=== PATIENT | female | born 1955 | race Caucasian/White ===

== ENCOUNTER → 2017-03-24 | Outpatient (CLI) | payer BC ==
--- NOTE | 2017-03-24 15:51 | BD ---
EXAMINATION TYPE: MG DEXA axial skeleton. DATE OF EXAM: 03/24/2017 8:51 AM COMPARISON: 01.07.2015 CLINICAL HISTORY: Z78.0 SCREENING FOR OSTEOPOROSIS Height: 60 Weight: 213 FRAX RISK QUESTIONS: Alcohol (3 or more units per day): NO Family History (Parent hip fracture): NO Glucocorticoids (More than 3mos): YES (Ex: prednisone, prednisolone, methylprednisolone, dexamethasone, and hydrocortisone). History of Fracture in Adulthood: NO Secondary Osteoporosis: NO 1. Type 1 Diabetes: NO 2. Hyperthyroidism: NO 3. Menopause before 45: NO 4. Malnutrition: NO 5. 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 Bone mineral density as measured about the Lumbar spine is: ----- L1-L4(G/cm2): 1.377 T Score Values are as follows: ----- L1 0.6 ----- L2: 1.5 ----- L3: 2.2 ----- L4: 2.0 ----- L1-L4: 1.6 Bone mineral density has: Increased 3.9% since study of: 01.07.2015 Bone mineral density about the R hip (g/cm2): 1.122 Bone mineral density about the L hip (g/cm2): 1.156 T Score values are as follows: -----R Neck: -0.5 -----L Neck: -0.7 -----R Total: 0.9 -----L Total: 1.2 Bone mineral density has: Decreased -1.0% since study of: 01.07.2015 FRAX %'S: 6.1% CHANCE OF MAJOR OSTEOPOROTIC FX AND A 0.2% CHANCE OF A HIP FX....PROBABILITY IN 10 YRS TIME IMPRESSION: Normal (Values between +1 and -1 indicate normal bone mass). Consider repeating this study in 5 year s or sooner if there is some new clinical indication. 2. Bone density within the lumbar spine has improved 3.9% from 2015 and density within the hips has d iminished 1% from 2015 NOTE: T-SCORE=SD OF THE YOUNG ADULT MEAN.
--- NOTE | 2017-03-27 09:22 | MM ---
Reason for exam: screening (asymptomatic). Last mammogram was performed 1 year and 2 months ago. History: Patient is postmenopausal and has history of other cancer at age 55. Family history of breast cancer in sister at age 57 and breast cancer in aunt at age 60. Physical Findings: A clinical breast exam by your physician is recommended on an annual basis and results should be correlated with mammographic findings. MG Screening Mammo w CAD Bilateral CC and MLO view(s) were taken. Prior study comparison: January 22, 2016, bilateral MG screening mammo w CAD. December 05, 2014, bilateral MG screening mammo w CAD. There are scattered fibroglandular densities. There is no discrete abnormality. No significant changes when compared with prior studies. ASSESSMENT: Negative, BI-RAD 1 RECOMMENDATION: Routine screening mammogram of both breasts in 1 year.
== END | disposition home or self-care (01) ==
LOC: RADMAMWWP 08:06
PROVIDERS: ATTEND Obstetrics & Gynecology
DX: Z12.31 Encounter for screening mammogram for malignant neoplasm of breast (principal); Z78.0 Asymptomatic menopausal state
CPT/HCPCS: 77080; G0202

== ENCOUNTER → 2018-04-20 | Outpatient (CLI) | payer BC ==
--- NOTE | 2018-04-24 08:46 | MM ---
Reason for exam: screening (asymptomatic). Last mammogram was performed 1 year and 1 month ago. History: Patient is postmenopausal and has history of other cancer at age 55. Family history of breast cancer in sister at age 57 and breast cancer in aunt at age 60. Physical Findings: A clinical breast exam by your physician is recommended on an annual basis and results should be correlated with mammographic findings. MG 3D Screening Mammo W/Cad Bilateral CC and MLO view(s) were taken. Prior study comparison: March 24, 2017, bilateral MG screening mammo w CAD. January 22, 2016, bilateral MG screening mammo w CAD. There are scattered fibroglandular densities. No significant changes when compared with prior studies. ASSESSMENT: Negative, BI-RAD 1 RECOMMENDATION: Routine screening mammogram of both breasts in 1 year.
== END | disposition home or self-care (01) ==
LOC: RADMAMWWP 07:42
PROVIDERS: ATTEND Obstetrics & Gynecology
DX: Z12.31 Encounter for screening mammogram for malignant neoplasm of breast (principal)
CPT/HCPCS: 77063; 77067

== ENCOUNTER 2019-07-30 08:04 | Observation (INO) | payer BC ==
[2019-07-30] MEDS ORDERED: SODIUM CHLORIDE 0.9% 1,000 ML IV STA (08:29)
[2019-07-30] MEDS ORDERED: NITROGLYCERIN SL TABS 0.4 MG TAB SUBLINGUAL STA (08:29)
--- NOTE | 2019-07-30 08:33 | ED ---
Nausea/Vomiting/Diarrhea HPI - General Chief complaint: Nausea/Vomiting/Diarrhea Stated complaint: chest pain Time Seen by Provider: 07/30/19 08:29 Source: patient, RN notes reviewed Mode of arrival: wheelchair Limitations: no limitations - History of Present Illness Initial comments: This is a 63-year-old female with a history of LAP-BAND in the past also history of cardiac catheterization over 10 years ago who presents with complaints the onset last evening of retrosternal chest pain rating to her left arm into her left back she states was 8/10 severity was associated with sweats and nausea she states she took 2 full strength aspirin about an hour later the symptoms for the most part resolved this morning she complains of continued less severe pain achy in nature 3/10 severity so some slight nausea. No fevers chills sweats no cough no phlegm production she states she has had a LAP-BAND in the past but there is no saline in it. She has a family history of heart disease her dad had manifestations of heart disease at the age of 62. No other modifying factors at this time MD complaint: nausea, other - Related Data Home Medications Medication Instructions Recorded Confirmed Ascorbic Acid [Vitamin C] 500 mg PO DAILY 07/30/19 07/30/19 Aspirin EC [Ecotrin] 650 mg PO ONCE PRN 07/30/19 07/30/19 Cyanocobalamin (Vitamin B-12) 1,000 mcg PO DAILY 07/30/19 07/30/19 [Vitamin B-12] Irbesartan 300 mg PO DAILY 07/30/19 07/30/19 Multivitamins, Thera [Multivitamin 1 tab PO DAILY 07/30/19 07/30/19 (formulary)] [place]-3 Fatty Acids/Fish Oil [Fish 1 cap PO DAILY 07/30/19 07/30/19 Oil 1,000 mg Softgel] Allergies Allergy/AdvReac Type Severity Reaction Status Date / Time No Known Allergies Allergy Verified 07/30/19 08:39 Review of Systems ROS Statement: Those systems with pertinent positive or pertinent negative responses have been documented in the HPI. ROS Other: All systems not noted in ROS Statement are negative. Past Medical History Past Medical History: Hypertension History of Any Multi-Drug Resistant Organisms: None Reported Past Surgical History: Section Additional Past Surgical History / Comment(s): lap band, skin cancer removal Past Psychological History: No Psychological Hx Reported Smoking Status: Never smoker Past Alcohol Use History: None Reported Past Drug Use History: None Reported General Exam - General Exam Comments Initial Comments: This is a well-developed well-nourished awake alert oriented 3 female Limitations: no limitations General appearance: alert, in no apparent distress Head exam: Present: atraumatic, normocephalic, normal inspection Eye exam: Present: normal appearance, PERRL, EOMI. Absent: scleral icterus, conjunctival injection, periorbital swelling ENT exam: Present: normal exam, mucous membranes moist Neck exam: Present: normal inspection, full ROM, other (No stridor or bruits no JVD). Absent: tenderness, meningismus, lymphadenopathy Respiratory exam: Present: normal lung sounds bilaterally. Absent: respiratory distress, wheezes, rales, rhonchi, stridor Cardiovascular Exam: Present: regular rate, normal rhythm, normal heart sounds. Absent: systolic murmur, diastolic murmur, rubs, gallop, clicks GI/Abdominal exam: Present: soft, normal bowel sounds. Absent: distended, tenderness, guarding, rebound, rigid, bruit, pulsatile mass Extremities exam: Present: normal inspection, full ROM, normal capillary refill. Absent: tenderness, pedal edema, joint swelling, calf tenderness Back exam: Present: normal inspection Neurological exam: Present: alert, oriented X3, CN II-XII intact Psychiatric exam: Present: normal affect, normal mood Skin exam: Present: warm, dry, intact, normal color. Absent: rash Course Vital Signs 07/30/19 07/30/19 07/30/19 08:07 08:43 09:00 Temperature 97.9 F Pulse Rate 72 72 Pulse Rate [ 75 [employer] Marker ] Respiratory 18 25 H 12 Rate Blood Pressure 161/87 140/102 O2 Sat by Pulse 97 95 Oximetry 07/30/19 10:00 Temperature Pulse Rate 73 Pulse Rate [ [employer] Marker ] Respiratory 12 Rate Blood Pressure 122/86 O2 Sat by Pulse 95 Oximetry - Reevaluation(s) Reevaluation #1: 07/30/19 11:26 Patient is feeling improved and did not require any nitroglycerin. Medical Decision Making - Medical Decision Making Reevaluation patient finds that she is resting comfortably symptoms have resolved the presentation however is consistent with angina. Discussion with the patient she is agreed to stay in hospital. She will be admitted with consultation to cardiology. The case is discussed with Dr. Telles - Lab Data Result diagrams: 07/30/19 08:48 07/30/19 08:48 Lab Results 07/30/19 07/30/19 07/30/19 Range/Units 08:48 08:48 08:48 WBC 4.4 (3.8-10.6) k/uL RBC 5.30 (3.80-5.40) m/uL Hgb 15.5 (11.4-16.0) gm/dL Hct 46.3 H (34.0-46.0) % MCV 87.4 (80.0-100.0) fL MCH 29.3 (25.0-35.0) pg MCHC 33.6 (31.0-37.0) g/dL RDW 13.3 (11.5-15.5) % Plt Count 207 (150-450) k/uL Neutrophils % 68 % Lymphocytes % 17 % Monocytes % 8 % Eosinophils % 3 % Basophils % 2 % Neutrophils # 3.0 (1.3-7.7) k/uL Lymphocytes # 0.7 L (1.0-4.8) k/uL Monocytes # 0.3 (0-1.0) k/uL Eosinophils # 0.1 (0-0.7) k/uL Basophils # 0.1 (0-0.2) k/uL PT 10.1 (9.0-12.0) sec INR 0.9 (<1.2) APTT 24.8 (22.0-30.0) sec D-Dimer 0.29 (<0.60) mg/L FEU Sodium 141 (137-145) mmol/L Potassium 4.2 (3.5-5.1) mmol/L Chloride 106 (98-107) mmol/L Carbon Dioxide 27 (22-30) mmol/L Anion Gap 8 mmol/L BUN 20 H (7-17) mg/dL Creatinine 0.67 (0.52-1.04) mg/dL Est GFR (CKD-EPI)AfAm >90 (>60 ml/min/1.73 sqM) Est GFR (CKD-EPI)NonAf >90 (>60 ml/min/1.73 sqM) Glucose 102 H (74-99) mg/dL Calcium 10.1 (8.4-10.2) mg/dL Magnesium 2.3 (1.6-2.3) mg/dL Total Bilirubin 0.6 (0.2-1.3) mg/dL AST 32 (14-36) U/L ALT 28 (9-52) U/L Alkaline Phosphatase 69 (38-126) U/L Creatine Kinase 120 (30-135) U/L Troponin I (0.000-0.034) ng/mL NT-Pro-B Natriuret Pep pg/mL Total Protein 7.2 (6.3-8.2) g/dL Albumin 4.4 (3.5-5.0) g/dL Lipase 77 (23-300) U/L 07/30/19 07/30/19 Range/Units 08:48 08:48 WBC (3.8-10.6) k/uL RBC (3.80-5.40) m/uL Hgb (11.4-16.0) gm/dL Hct (34.0-46.0) % MCV (80.0-100.0) fL MCH (25.0-35.0) pg MCHC (31.0-37.0) g/dL RDW (11.5-15.5) % Plt Count (150-450) k/uL Neutrophils % % Lymphocytes % % Monocytes % % Eosinophils % % Basophils % % Neutrophils # (1.3-7.7) k/uL Lymphocytes # (1.0-4.8) k/uL Monocytes # (0-1.0) k/uL Eosinophils # (0-0.7) k/uL Basophils # (0-0.2) k/uL PT (9.0-12.0) sec INR (<1.2) APTT (22.0-30.0) sec D-Dimer (<0.60) mg/L FEU Sodium (137-145) mmol/L Potassium (3.5-5.1) mmol/L Chloride (98-107) mmol/L Carbon Dioxide (22-30) mmol/L Anion Gap mmol/L BUN (7-17) mg/dL Creatinine (0.52-1.04) mg/dL Est GFR (CKD-EPI)AfAm (>60 ml/min/1.73 sqM) Est GFR (CKD-EPI)NonAf (>60 ml/min/1.73 sqM) Glucose (74-99) mg/dL Calcium (8.4-10.2) mg/dL Magnesium (1.6-2.3) mg/dL Total Bilirubin (0.2-1.3) mg/dL AST (14-36) U/L ALT (9-52) U/L Alkaline Phosphatase (38-126) U/L Creatine Kinase (30-135) U/L Troponin I <0.012 (0.000-0.034) ng/mL NT-Pro-B Natriuret Pep 90 pg/mL Total Protein (6.3-8.2) g/dL Albumin (3.5-5.0) g/dL Lipase (23-300) U/L - EKG Data -: EKG Interpreted by Me EKG shows normal: sinus rhythm, axis, intervals, QRS complexes, ST-T waves (Normal sinus rhythm of 75. Interval 174 QRS 84 QT since QTC 382/[address]-T wave changes are seen) Rate: normal - Radiology Data Radiology results: report reviewed (I did review the imaging and report no acute findings.), image reviewed Disposition Clinical Impression: Unstable angina pectoris, Chest pain Disposition: ADMITTED IP TO THIS [facility] Condition: Stable Referrals: Jesse Flores MD [Primary Care Provider] - 1-2 days
[2019-07-30 09:10] LABS: Basophils # (A) 0.1 k/uL (0-0.2); Basophils % (A) 2 %; Eosinophils # (A) 0.1 k/uL (0-0.7); Eosinophils % (A) 3 %; HCT 46.3 % (34.0-46.0); HGB 15.5 gm/dL (11.4-16.0); Lymphocytes # (A) 0.7 k/uL (1.0-4.8); Lymphocytes % (A) 17 %; MCH 29.3 pg (25.0-35.0); MCHC 33.6 g/dL (31.0-37.0); MCV 87.4 fL (80.0-100.0); Mean Platelet Volume 6.6; Monocytes # (A) 0.3 k/uL (0-1.0); Monocytes % (A) 8 %; Neutrophils % (A) 68 %; Platelet Count 207 k/uL (150-450); RDW 13.3 % (11.5-15.5); WBC 4.4 k/uL (3.8-10.6)
--- NOTE | 2019-07-30 09:17 | XR ---
EXAMINATION TYPE: XR chest 2V DATE OF EXAM: 07/30/2019 COMPARISON: None HISTORY: 63-year-old female with chest pain TECHNIQUE: PA and lateral views FINDINGS: Heart normal size. Mild elongation thoracic aorta. Mild interstitial prominence. Some strandy atelect asis in the lower lungs. No consolidation or pleural effusion. IMPRESSION: Chronic-appearing changes without acute cardiopulmonary process.
[2019-07-30 09:33] LABS: D-Dimer 0.29 mg/L FEU (<0.60); INR 0.9 (<1.2); Partial Thromboplastin Time 24.8 sec (22.0-30.0); Prothrombin Time 10.1 sec (9.0-12.0)
[2019-07-30 09:36] LABS: ALT 28 U/L (9-52); AST 32 U/L (14-36); African American GFR (CKD) >90 (>60 ml/min/1.73 sqM); Albumin 4.4 g/dL (3.5-5.0); Alkaline Phosphatase 69 U/L (38-126); Anion Gap 8 mmol/L; Blood Urea Nitrogen 20 mg/dL (7-17); Calcium 10.1 mg/dL (8.4-10.2); Carbon Dioxide 27 mmol/L (22-30); Chloride 106 mmol/L (98-107); Creatine Kinase 120 U/L (30-135); Glucose 102 mg/dL (74-99); Magnesium 2.3 mg/dL (1.6-2.3); Potassium 4.2 mmol/L (3.5-5.1); Sodium 141 mmol/L (137-145); Total Bilirubin 0.6 mg/dL (0.2-1.3); Total Protein 7.2 g/dL (6.3-8.2)
[2019-07-30] MEDS ORDERED: HEPARIN SODIUM,PORCINE 5,000 UNIT/ML 1 ML VIAL IV ONE (11:29)
[2019-07-30] MEDS ORDERED: NITROGLYCERIN SL TABS 0.4 MG TAB SUBLINGUAL PRN (11:29)
[2019-07-30] MEDS ORDERED: SODIUM CHLORIDE 0.9% 1,000 ML IV SCH (11:30)
[2019-07-30] MEDS ORDERED: HEPARIN SOD,PORK IN 0.45% NACL 25,000 UNIT in 0.45% NACL 1 250ML.BAG IV SCH (11:30)
--- NOTE | 2019-07-30 13:39 | P.CRDCN ---
History of Present Illness History of present illness: This is a pleasant 63-year-old female past medical history significant for hypertension and previous lap band surgery. She denies prior history of coronary artery disease, diabetes mellitus or dyslipidemia. She does not follow with a safety person for any reason. She did undergo a heart catheterization 10 years that was normal, per the patient. We have been asked to see her in c onsultation for chest pain. She states last night while she was getting ready for bed she noticed a discomfort in the left upper chest with some radiation to the left anterior shoulder. She took aspirin and went to sleep. She woke up chest pain free however she noticed some mild nausea, light headed and overall didn't feel well. Prompting her to come in for evaluation. She is seen and examined sitting on the stretcher in ER with her at the bedside. She denies ongoing chest discomfort, nausea or feeling light headed. EKG reveals sinus mechanism with no acute ST or T-wave abnormalities. Chest x-ray is negative for acute cardiopulmonary process with mild interstitial prominence. Laboratory data reviewed, CBC unremarkable, d-dimer 0.29, sodium 141, potassium 4.2, creatinine 0.67, magnesium 2.3, cardiac enzymes negative 1, proBNP 90. Current daily cardiac medications include irbesartan 300 mg daily. At the time of my exam: CONSTITUTIONAL: Denies fever. Denies chills. EYES: Denies blurred vision. Denies vision changes. Denies eye pain. EARS, NOSE, MOUTH & THROAT: Denies headache. Denies sore throat. Denies ear pain. CARDIOVASCULAR: Denies chest pain. Denies shortness of breath. Denies orthopnea. Denies PND. Denies palpitations. RESPIRATORY: Denies cough. GASTROINTESTINAL: Denies abdominal pain. Denies diarrhea. Denies constipation. Denies nausea. Denies vomiting. MUSCULOSKELETAL: Denies myalgias. INTEGUMENTARY: Denies pruitis. Denies rash. NEUROLOGIC: Denies numbness. Denies tingling. Denies weakness. PSYCHIATRIC: Denies anxiety. Denies depression. ENDOCRINE: Denies fatigue. Denies weight change. Denies polydipsia. Denies polyurina. GENITOURINARY: Denies burning, hematuria or urgency with micturation. HEMATOLOGIC: Denies history of anemia. Denies bleeding. Blood pressure 122/86 heart rate 73 afebrile maintaining oxygen saturation on room air GENERAL: This is a 63-year-old female in no apparent distress at the time of my examination. Obese. HEENT: Head is atraumatic, normocephalic. Pupils are equal, round. Sclerae anicteric. Conjunctivae are clear. Mucous membranes of the mouth are moist. Neck is supple. There is no jugular venous distention. No carotid bruit is heard. LUNGS: Clear to auscultation no wheezes, rales or rhonchi. No chest wall tenderness is noted on palpation or with deep breathing. HEART: Regular rate and rhythm without murmurs, rubs or gallops. S1 and S2 heard. ABDOMEN: Soft, nontender. Bowel sounds are heard. No organomegaly noted. EXTREMITIES: No evidence of peripheral edema and no calf tenderness noted. VASCULAR: Radial and dorsalis pedis pulses palpated, no evidence of clubbing. NEUROLOGIC: Patient is awake, alert and oriented x3. ASSESSMENT Chest pain, atypical. Patient is quite active and exercises regularly with no chest pain with exertion. Hypertension Morbid obesity, BMI 43 History of lap band PLAN Symptoms are atypical occurring at rest. Less likely considering she exercises regularly without ever having symptoms of chest pain or shortness of breath. Continue to obtain serial cardiac enzymes to rule out an acute event. Check lipid profile. Obtain 2D echocardiogram and doppler study to assess cardiac structure and function. If enzymes are normal we will pursue a stress test in the morning. Plans have been discussed with the patient and her . Thank you kindly for this consultation. Nurse Practitioner note has been reviewed, I agree with a documented findings and plan of care. Patient was seen and examined. Past Medical History Past Medical History: Hypertension History of Any Multi-Drug Resistant Organisms: None Reported Past Surgical History: Section Additional Past Surgical History / Comment(s): lap band, skin cancer removal Past Psychological History: No Psychological Hx Reported Smoking Status: Never smoker Past Alcohol Use History: None Reported Past Drug Use History: None Reported Medications and Allergies Home Medications Medication Instructions Recorded Confirmed Type Ascorbic Acid [Vitamin C] 500 mg PO DAILY 07/30/19 07/30/19 History Aspirin EC [Ecotrin] 650 mg PO ONCE PRN 07/30/19 07/30/19 History Cyanocobalamin (Vitamin B-12) 1,000 mcg PO DAILY 07/30/19 07/30/19 History [Vitamin B-12] Irbesartan 300 mg PO DAILY 07/30/19 07/30/19 History Multivitamins, Thera [Multivitamin 1 tab PO DAILY 07/30/19 07/30/19 History (formulary)] [place]-3 Fatty Acids/Fish Oil [Fish 1 cap PO DAILY 07/30/19 07/30/19 History Oil 1,000 mg Softgel] Allergies Allergy/AdvReac Type Severity Reaction Status Date / Time No Known Allergies Allergy Verified 07/30/19 08:39 Physical Exam Vitals: Vital Signs Temp Pulse Pulse Resp BP Pulse Ox 07/30/19 10:00 73 12 122/86 95 07/30/19 09:00 72 12 140/102 95 07/30/19 08:43 75 25 H 07/30/19 08:07 97.9 F 72 18 161/87 97 Intake and Output 07/29/19 07/30/19 07/30/19 22:59 06:59 14:59 Other: Weight 99.79 kg Results 07/30/19 08:48 07/30/19 08:48 Cardiac Enzymes 07/30/19 07/30/19 Range/Units 08:48 08:48 AST 32 (14-36) U/L Troponin I <0.012 (0.000-0.034) ng/mL Coagulation 07/30/19 Range/Units 08:48 PT 10.1 (9.0-12.0) sec APTT 24.8 (22.0-30.0) sec CBC 07/30/19 Range/Units 08:48 WBC 4.4 (3.8-10.6) k/uL RBC 5.30 (3.80-5.40) m/uL Hgb 15.5 (11.4-16.0) gm/dL Hct 46.3 H (34.0-46.0) % Plt Count 207 (150-450) k/uL Comprehensive Metabolic Panel 07/30/19 Range/Units 08:48 Sodium 141 (137-145) mmol/L Potassium 4.2 (3.5-5.1) mmol/L Chloride 106 (98-107) mmol/L Carbon Dioxide 27 (22-30) mmol/L BUN 20 H (7-17) mg/dL Creatinine 0.67 (0.52-1.04) mg/dL Glucose 102 H (74-99) mg/dL Calcium 10.1 (8.4-10.2) mg/dL AST 32 (14-36) U/L ALT 28 (9-52) U/L Alkaline Phosphatase 69 (38-126) U/L Total Protein 7.2 (6.3-8.2) g/dL Albumin 4.4 (3.5-5.0) g/dL Current Medications Generic Name Dose Route Start Last Admin Trade Name Hannah PRN Reason Stop Dose Admin Ascorbic Acid 500 mg 07/31/19 09:00 Vitamin C PO DAILY DESMOND Aspirin 81 mg 07/31/19 09:00 Aspirin PO DAILY DESMOND Cyanocobalamin 1,000 mcg 07/31/19 09:00 Vitamin B-12 PO DAILY DESMOND Sodium Chloride 1,000 mls @ 20 mls/hr 07/30/19 08:29 07/30/19 08:58 Saline 0.9% IV 07/31/19 08:28 Not Given .Q24H STA Sodium Chloride 1,000 mls @ 20 mls/hr 07/30/19 11:30 07/30/19 11:59 Saline 0.9% IV 20 mls/hr .Q24H DESMOND Administration Heparin Sodium/Sodium Chloride 250 mls @ 10 mls/hr 07/30/19 11:30 07/30/19 11:59 25,000 unit/ Sodium Chloride IV 10.021 units/kg/hr .Q24H DESMOND 10 mls/hr Administration Protocol 10.021 UNITS/KG/HR Losartan Potassium 100 mg 07/31/19 09:00 Cozaar PO DAILY [facility] Multivitamins 1 each 07/31/19 09:00 Theragran PO DAILY [facility] Nitroglycerin 0.4 mg 07/30/19 11:29 Nitrostat SUBLINGUAL Q5M PRN Chest Pain Intake and Output 07/29/19 07/30/19 07/30/19 22:59 06:59 14:59 Other: Weight 99.79 kg Patient Weight 07/31/19 06:59 Weight 99.79 kg 07/30/19 08:48 07/30/19 08:48
[2019-07-30 18:23] VITALS: RESP 18
--- NOTE | 2019-07-30 21:50 | P.HPIM ---
History of Present Illness H&P Date: 07/30/19 Chief Complaint: Chest pain History of presenting complaint This is a pleasant 63-year-old patient of Dr. Jesse Flores. Last night patient developed pain in the precordial area. Feels like a pressure. The patient did go down to the back and also went down the left arm. It lasted for about an hour. Has been given 2 baby aspirin is. The patient went back to sleep. There was no associated shortness of breath, dizziness or lightheadedness. This morning with the patient woke up she was nauseated. Given her family history of coronary artery disease and her daughter also from arrhythmia. She decided to come in. Admitted with diagnosis of unstable angina for further cardiac workup. Cardiac she was consulted. Patient otherwise active and does regular workout and his physical training. No prior cardiac history Review of systems: GEN.: None EYES: None HEENT: None NECK: None RESPIRATORY: None CARDIOVASCULAR: As above GASTROINTESTINAL: None GENITOURINARY: None MUSCULOSKELETAL: Chronic low back pain LYMPHATICS: None HEMATOLOGICAL: None PSYCHIATRY: None NEUROLOGICAL: None Social history: Does not smoke. No alcohol. . 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 Family history: Coronary artery disease Physical examination: VITAL SIGNS: 97.9, 65, 18, 144/98, 97% room air GENERAL: BMI 43, laying in bed a bit anxious. EYES: Pupils equal. Conjunctiva normal. HEENT: External appearance of nose and ears normal, oral cavity grossly normal. NECK: JVD not raised; masses not palpable. HEART: First and second heart sounds are normal; no edema. LUNGS: Respiratory rate normal; clear to auscultation. ABDOMEN: Soft, nontender, liver spleen not palpable, no masses palpable. PSYCH: Alert and oriented x3; mood and affect normal. NEUROLOGICAL: Cranial nerves grossly intact; no facial asymmetry, power and sensation grossly intact. LYMPHATICS: No lymph nodes palpable in the axilla and neck MUSCULOSKELETAL: Evidence of OA in the hands INVESTIGATIONS, reviewed in the clinical context: White count 4.4 hemoglobin 15.5 platelets 207 potassium 4.2 creatinine 0.67 Troponin I 3 negative EKG tracing personally reviewed by me shows normal sinus rhythm Chest x-ray film personally reviewed by me shows lung gardner to be clear questionable some chronic changes of the right side Assessment: -Anterior chest wall pain with some atypical features, to rule out underlying cardiac cause. [place] has been ruled out -Primary osteoarthritis -Essential hypertension -Morbid obesity BMI 43 Plan: Serial cardiac enzymes are negative patient is on IV heparin. Home medications resumed. Patient undergo stress test tomorrow. Care was discussed with the eliecer mike. Patient to see a dietitian and family doctor for weight loss measures Past Medical History Past Medical History: Cancer, Hypertension, Respiratory Disorder Additional Past Medical History / Comment(s): arthritis in lower back, broncitis History of Any Multi-Drug Resistant Organisms: None Reported Past Surgical History: Section Additional Past Surgical History / Comment(s): lap band, skin cancer removal Past Anesthesia/Blood Transfusion Reactions: No Reported Reaction Past Psychological History: No Psychological Hx Reported Smoking Status: Never smoker Past Alcohol Use History: None Reported Past Drug Use History: None Reported - Past Family History Father Additional Family Medical History / Comment(s): cabg x 4 Daughter(s) Additional Family Medical History / Comment(s): cardiac arrythmia Medications and Allergies Home Medications Medication Instructions Recorded Confirmed Type Ascorbic Acid [Vitamin C] 500 mg PO DAILY 07/30/19 07/30/19 History Aspirin EC [Ecotrin] 650 mg PO ONCE PRN 07/30/19 07/30/19 History Cyanocobalamin (Vitamin B-12) 1,000 mcg PO DAILY 07/30/19 07/30/19 History [Vitamin B-12] Irbesartan 300 mg PO DAILY 07/30/19 07/30/19 History Multivitamins, Thera [Multivitamin 1 tab PO DAILY 07/30/19 07/30/19 History (formulary)] [place]-3 Fatty Acids/Fish Oil [Fish 1 cap PO DAILY 07/30/19 07/30/19 History Oil 1,000 mg Softgel] Allergies Allergy/AdvReac Type Severity Reaction Status Date / Time No Known Allergies Allergy Verified 07/30/19 08:39 Physical Exam Vitals: Vital Signs Temp Pulse Pulse Resp BP BP Pulse Ox 07/30/19 18:22 97.9 F 65 18 144/98 97 07/30/19 16:00 67 16 159/83 07/30/19 14:00 66 16 152/89 07/30/19 10:00 73 12 122/86 95 07/30/19 09:00 72 12 140/102 95 07/30/19 08:43 75 25 H 07/30/19 08:07 97.9 F 72 18 161/87 97 Intake and Output 07/30/19 07/30/19 07/30/19 06:59 14:59 22:59 Other: Voiding Method Toilet Weight 99.79 kg Results CBC & Chem 7: 07/30/19 08:48 07/30/19 08:48 Labs: Abnormal Lab Results - Last 24 Hours (Table) 07/30/19 07/30/19 07/30/19 Range/Units 08:48 08:48 19:14 Hct 46.3 H (34.0-46.0) % Lymphocytes # 0.7 L (1.0-4.8) k/uL APTT 39.0 H (22.0-30.0) sec BUN 20 H (7-17) mg/dL Glucose 102 H (74-99) mg/dL Thrombosis Risk Factor Assmnt - Choose All That Apply Any of the Below Risk Factors Present?: Yes Each Factor Represents 1 point: Obesity (BMI >25) Other Risk Factors: Yes Each Risk Factor Represents 2 Points: Age 61-74 years Other congenital or acquired thrombophilia - If yes, enter type in comment: No Thrombosis Risk Factor Assessment Total Risk Factor Score: 3 Thrombosis Risk Factor Assessment Level: Moderate Risk
[2019-07-30 23:26] LABS: Cholesterol 220 mg/dL (<200); HDL Cholesterol 49 mg/dL (40-60); LDL Cholesterol,Calculated 146 mg/dL (0-99); Triglycerides 125 mg/dL (<150)
--- NOTE | 2019-07-31 07:29 | PN ---
PROGRESS NOTE Mrs. George is a 63-year-old female who presented to the emergency room with symptoms of chest discomfort. The discomfort occurred at rest. She is pain-free this morning. She is denying any chest discomfort. She denies any dizziness or palpitation. She denies any nausea. She continues to be in sinus mechanism. She continues to be at this time on IV heparin, aspirin, losartan 100 mg daily. PHYSICAL EXAMINATION: Blood pressure 105/70 with the heart rate in the 60s. LUNGS: Clear. HEART: Regular rate and rhythm. S1, S2. No S3. No rub. ABDOMEN: Soft, nontender. Positive bowel sounds. EXTREMITIES: No edema. LAB DATA: Lab data revealed troponin less than 0.012. Cholesterol of 220, LDL of 146. IMPRESSION: 1. Chest discomfort with no evidence of myocardial infarction. 2. History of hypertension. 3. Hyperlipidemia. RECOMMENDATION: From the cardiac standpoint, I will stop the IV heparin. I will proceed with a stress echocardiogram. If there is no evidence of inducible ischemia, then no further cardiac workup will be needed. MMODL / IJN: [id number] /
[2019-07-31] MEDS ORDERED: NON FORMULARY DRUG (Omega-3 Fatty Acids/Fish Oil [Fish Oil 1,000 Mg Softgel] 1 CAP) PO SCH (09:00)
[2019-07-31] MEDS ORDERED: ASCORBIC ACID 500 MG TAB PO SCH (09:00)
[2019-07-31] MEDS ORDERED: CYANOCOBALAMIN 500 MCG TAB PO SCH (09:00)
[2019-07-31] MEDS ORDERED: LOSARTAN 50 MG TAB PO SCH (09:00)
[2019-07-31] MEDS ORDERED: MULTIVITAMINS, THERA 1 EACH TAB PO SCH (09:00)
[2019-07-31] MEDS ORDERED: ATORVASTATIN 20 MG TAB PO SCH (09:00)
[2019-07-31] MEDS ORDERED: ASPIRIN 325 MG TAB PO SCH (09:00)
[2019-07-31] MEDS ORDERED: ASPIRIN 81 MG PO SCH (09:00)
--- NOTE | 2019-07-31 10:01 | ECHOF ---
Referral Reason:cp MEASUREMENTS -------- HEIGHT: 152.4 cm WEIGHT: 99.8 kg BP: RVIDd: 2.9 cm (< 3.3) IVSd: 1.3 cm (0.6 - 1.1) LVIDd: 3.3 cm (3.9 - 5.3) LVPWd: 1.3 cm (0.6 - 1.1) IVSs: 1.8 cm LVIDs: 2.5 cm LVPWs: 1.8 cm LA Diam: 3.1 cm (2.7 - 3.8) LAESV Index (A-L): 21.01 ml/m Ao Diam: 3.4 cm (2.0 - 3.7) AV Cusp: 2.0 cm (1.5 - 2.6) EPSS: 0.6 cm MV E Dez: 0.53 m/s MV DecT: 244 ms MV A Dez: 0.77 m/s MV E/A Ratio: 0.69 MV EF SLOPE: 55.23 mm/s (70 - 150) MV EXCURSION: 1.32 cm (> 18.000) FINDINGS -------- Sinus rhythm. This was a technically adequate study. The left ventricular size is normal. There is mild concentric left ventricular hypertrophy. Overa ll left ventricular systolic function is normal with, an EF between 55 - 60 %. The diastolic fillin g pattern is normal for the age of the patient. The right ventricle is normal in size. Left atrium is normal size by volume. The right atrial size is normal. The aortic valve is trileaflet, and appears structurally normal. No aortic stenosis or regurgitation. The mitral valve is normal. There is trace to mild mitral regurgitation. The tricuspid valve appears structurally normal. Trace tricuspid regurgitation present. The pulmonic valve was not well visualized. There is no pulmonic regurgitation present. The aortic root size is normal. The inferior vena cava was not well visualized. There is no pericardial effusion. CONCLUSIONS -------- 1. Sinus rhythm. 2. This was a technically adequate study. 3. The left ventricular size is normal. 4. There is mild concentric left ventricular hypertrophy. 5. Overall left ventricular systolic function is normal with, an EF between 55 - 60 %. 6. The diastolic filling pattern is normal for the age of the patient. 7. Left atrium is normal size by volume. 8. The aortic valve is trileaflet, and appears structurally normal. No aortic stenosis or regurgitati on. 9. There is trace to mild mitral regurgitation. 10. Trace tricuspid regurgitation present. 11. The pulmonic valve was not well visualized. 12. The aortic root size is normal. 13. The inferior vena cava was not well visualized. 14. There is no pericardial effusion. [employer] SUPERVISOR: DENISE Pires
--- NOTE | 2019-07-31 10:59 | ECHOS ---
STRESS ECHOCARDIOGRAM INDICATIONS: Chest pain. BASELINE HEART RATE: 67 BASELINE BLOOD PRESSURE: 131/65 MAXIMUM HEART RATE: 142 MAXIMUM BLOOD PRESSURE: 192/75 85% MPHR: 133 100% MPHR: 157 METS: 9.7 MAXIMUM STAGE REACHED: 3 TOTAL EXERCISE TIME: 8:00 CLINICAL INFORMATION: Baseline rhythm is sinus mechanism rate of 67, normal axis, intervals, normal echocardiogram. Baseline blood pressure 131/65 mmHg. Patient exercised on Juan Manuel protocol for 8 minutes reaching peak rate 142 beats per minute which is equal to 90% maximum predicted heart rate. Peak blood pressure 192/75 mmHg. Test was terminated secondary to fatigue. There were no chest pain. Electrocardiograph monitoring revealed no evidence of diagnostic ischemic ST deviation, rare PVCs were noted in recovery. Baseline echocardiogram revealed normal wall thickening and motion. At peak exercise, there was normal wall motion augmentation with no hypokinesis or dyskinesis. CONCLUSION: 1. Average exercise tolerance with normal electrocardiographic response to exercise. 2. Normal stress echocardiogram with no evidence of stress-induced ischemia. MMODL / IJN: [id number] /
[2019-07-31 11:11] VITALS: BP 100/64; PULSE 83; TEMP 97.3
--- NOTE | 2019-07-31 22:36 | P.DS ---
Providers Date of admission: 07/30/19 11:29 Expected date of discharge: 07/31/19 Attending physician: Rigoberto Telles Consults: 07/30/19 11:29 Consult Physician Urgent Consulting Provider: Ric Agee Consult Reason/Comments: Chest pain Do you want consulting provider notified?: Yes Primary care physician: Jesse Flores MD Assessment: Chief Complaint: Chest pain Hospital course: This is a pleasant 63-year-old patient of Dr. Jesse Flores. Last night patient developed pain in the precordial area. Feels like a pressure. The patient did go down to the back and also went down the left arm. It lasted for about an hour. Has been given 2 baby aspirin is. The patient went back to sleep. There was no associated shortness of breath, dizziness or lightheadedness. This morning with the patient woke up she was nauseated. Given her family history of coronary artery disease and her daughter also from arrhythmia. She decided to come in. Admitted with diagnosis of unstable angina for further cardiac workup. cardiologywas consulted. Patient otherwise active and does regular workout and his physical training. No prior cardiac history troponins were negative.stress echocardiogram was negative.patient advised that his symptoms are to come back to follow-up on the same. Consultation: Dr. Rey from oncology Physical examination: VITAL SIGNS: patient 0.3, 83, 18, 100/64, 95% room air GENERAL: BMI 43, laying in bed a bit anxious. EYES: Pupils equal. Conjunctiva normal. HEENT: External appearance of nose and ears normal, oral cavity grossly normal. NECK: JVD not raised; masses not palpable. HEART: First and second heart sounds are normal; no edema. LUNGS: Respiratory rate normal; clear to auscultation. ABDOMEN: Soft, nontender, liver spleen not palpable, no masses palpable. PSYCH: Alert and oriented x3; mood and affect normal. MUSCULOSKELETAL: Evidence of OA in the hands INVESTIGATIONS, reviewed in the clinical context: 2-D echo showing EF of 35-60% Stress echocardiogram negative White count 4.4 hemoglobin 15.5 platelets 207 potassium 4.2 creatinine 0.67 Troponin I 3 negative EKG tracing personally reviewed by me shows normal sinus rhythm Chest x-ray film personally reviewed by me shows lung gardner to be clear questionable some chronic changes of the right side discharge diagnosis: -Anterior chest wall pain with some atypical features, probably musculoskeletal.t -Primary osteoarthritis -Essential hypertension -Morbid obesity BMI 43 disposition: home Patient Condition at Discharge: Stable Plan - Discharge Summary Discharge Rx Participant: No New Discharge Prescriptions: New Aspirin 81 mg PO DAILY chew Atorvastatin [Lipitor] 20 mg PO DAILY #30 tab Continue Multivitamins, Thera [Multivitamin (formulary)] 1 tab PO DAILY Irbesartan 300 mg PO DAILY Ascorbic Acid [Vitamin C] 500 mg PO DAILY [place]-3 Fatty Acids/Fish Oil [Fish Oil 1,000 mg Softgel] 1 cap PO DAILY Cyanocobalamin (Vitamin B-12) [Vitamin B-12] 1,000 mcg PO DAILY Discontinued Aspirin EC [Ecotrin] 650 mg PO ONCE PRN PRN Reason: Pain Discharge Medication List Ascorbic Acid [Vitamin C] 500 mg PO DAILY 07/30/19 [History] Cyanocobalamin (Vitamin B-12) [Vitamin B-12] 1,000 mcg PO DAILY 07/30/19 [History] Irbesartan 300 mg PO DAILY 07/30/19 [History] Multivitamins, Thera [Multivitamin (formulary)] 1 tab PO DAILY 07/30/19 [History] [place]-3 Fatty Acids/Fish Oil [Fish Oil 1,000 mg Softgel] 1 cap PO DAILY 07/30/19 [History] Aspirin 81 mg PO DAILY chew 07/31/19 [Rx] Atorvastatin [Lipitor] 20 mg PO DAILY #30 tab 07/31/19 [Rx] Follow up Appointment(s)/Referral(s): Wilton Crawford MD [STAFF PHYSICIAN] - 08/12/19 8:30 am (Please bring drivers license, insurance cards and all medications to office visit with Dr. Crawford) Jesse Flores MD [Primary Care Provider] - 1-2 days Patient Instructions/Handouts: Chest Pain (GEN) Discharge Disposition: HOME SELF-CARE
== END 2019-07-31 15:04 | disposition home or self-care (01) ==
LOC: EC 08:04 → 1SOBS 11:29
PROVIDERS: ADMIT Hospitalist; ATTEND Hospitalist
DX: R07.89 Other chest pain (principal); R07.2 Precordial pain; R61 Generalized hyperhidrosis; R42 Dizziness and giddiness; R19.7 Diarrhea, unspecified; R11.2 Nausea with vomiting, unspecified; M19.91 Primary osteoarthritis, unspecified site; E78.5 Hyperlipidemia, unspecified; I10 Essential (primary) hypertension; G89.29 Other chronic pain; M54.5 Low back pain; E66.01 Morbid (severe) obesity due to excess calories; Z68.41 Body mass index [BMI] 40.0-44.9, adult; Z98.84 Bariatric surgery status; Z85.828 Personal history of other malignant neoplasm of skin; Z87.09 Personal history of other diseases of the respiratory system; Z79.899 Other long term (current) drug therapy; Z79.82 Long term (current) use of aspirin; Z82.49 Family history of ischemic heart disease and other diseases of the circulatory system
CPT/HCPCS: 96366 ×3; 96376; 96365; 99285; 36415; 94760; 93306; 93351; 85379; 83880; 80061; 80053; 82550; 83690; 83735; 84484; 85025; 85610; 85730; 71046; G0378 ×2; J1644 ×2; Q9950

== ENCOUNTER → 2023-09-13 | Outpatient (CLI) | payer MEDICARE ==
--- NOTE | 2023-09-13 08:03 | MM ---
Reason for Exam: Screening (asymptomatic). Last mammogram was performed 1 year(s) and 2 month(s) ago. Patient History: Menarche at age 10. First Full-Term at age 23. Postmenopausal. Other cancer, age 55. Maternal aunt had breast cancer, age 60. Sister had breast cancer, age 57. Risk Values: Malorie 5 year model risk: 3.5%. NCI Lifetime model risk: 11.8%. Prior Study Comparison: 01/22/2016 Bilateral Screening Mammogram, [facility]. 03/24/2017 Bilateral Screening Mammogram, [facility]. 04/20/2018 Bilateral Screening Mammogram, [facility]. 07/03/2020 Bilateral Screening Mammogram, Unknown. 08/05/2022 Bilateral Screening Mammogram, Unknown. Tissue Density: There are scattered fibroglandular densities. Findings: Analyzed By CAD. There is no suspicious group of microcalcifications or new suspicious mass in either breast. Overall Assessment: Negative, BI-RAD 1 Management: Screening Mammogram of both breasts in 1 year. A clinical breast exam by your physician is recommended on an annual basis and results should be correlated with mammographic findings. Note on Malorie scores and lifetime risk: 1. A Malorie score greater than 3% is considered moderate risk. If this is the case, consider specialist referral to assess eligibility for a risk reducing agent. If overall lifetime risk for the development of breast cancer is 20% or higher, the patient may qualify for future screening with alternating mammogram and breast MRI. Electronically signed and approved by: Daniel Mae D.O.
--- NOTE | 2023-09-13 09:29 | BD ---
EXAMINATION TYPE: Axial Bone Density DATE OF EXAM: 09/13/2023 CLINICAL HISTORY: 67 years old Female. ICD-10 CODE: M81.0 Osteoporosis Height: 59.5 Weight: 229 FRAX RISK QUESTIONS: History of Fracture in Adulthood: no Secondary Osteoporosis: no RISK FACTORS HISTORY OF: Active: yes Diet low in dairy products/other sources of calcium: no Postmenopausal woman: yes Lost more than 2 inches in height since high school: no Frequent falls: no Poor Health: no MEDICATIONS: Additional Medications: yes hbp meds , calcium and vitd Additional History: yes, lap band EXAM MEASUREMENTS: Bone mineral densitometry was performed using the [employer] System. Bone mineral density as measured about the Lumbar spine is: ----- L1-L4(G/cm2): 1.242 T Score Values are as follows: ----- L1: -0.3 ----- L2: 0.7 ----- L3: 0.2 ----- L4: 1.2 ----- L1-L4: 0.5 Z Score Values are as follows: ----- L1: 0.2 ----- L2: 1.1 ----- L3: 0.6 ----- L4: 1.7 ----- L1-L4: 1.0 Bone mineral density has: Decreased -9.8% since study of: 03/24/2017 Bone mineral density about the R hip (g/cm2): 1.091 Bone mineral density about the L hip (g/cm2): 0.923 T Score values are as follows: -----R Neck: -0.8 -----L Neck: -1.0 -----R Total: 0.7 -----L Total: -0.7 Z Score values are as follows: -----R Neck: 0.0 -----L Neck: -0.2 -----R Total: 1.2 -----L Total: -0.2 Bone mineral density has: Decreased -11.6% since study of: 03/24/2017 FRAX%s: The graph provided illustrates a 7.2% chance for a major osteoporotic fx and a 0.6% chance fo r the hips probability for fx in 10 years time. IMPRESSION: Normal (Values between +1 and -1 indicate normal bone mass). Consider repeating this study in 5 year s or sooner if there is some new clinical indication. NOTE: T-SCORE=SD OF THE YOUNG ADULT MEAN.
== END | disposition home or self-care (01) ==
LOC: RADMAMWWP 07:26
PROVIDERS: ATTEND Family Medicine
DX: Z12.31 Encounter for screening mammogram for malignant neoplasm of breast (principal); M81.0 Age-related osteoporosis without current pathological fracture; Z78.0 Asymptomatic menopausal state; Z80.3 Family history of malignant neoplasm of breast
CPT/HCPCS: 77063; 77067; 77080

== ENCOUNTER → 2025-01-17 | Outpatient (CLI) | payer MEDICARE ==
--- NOTE | 2025-01-17 11:59 | MM ---
Reason for Exam: Screening (asymptomatic). Last mammogram was performed 1 year(s) and 4 month(s) ago. Patient History: Menarche at age 10. First Full-Term at age 23. Postmenopausal. Other cancer, age 55. Maternal aunt had breast cancer, age 60. Sister had breast cancer, age 57. Risk Values: Malorie 5 year model risk: 3.6%. NCI Lifetime model risk: 10.9%. Prior Study Comparison: 07/03/2020 Bilateral Screening Mammogram, Unknown. 08/05/2022 Bilateral Screening Mammogram, Unknown. 09/13/2023 Bilateral MG 3D screening mammo w/cad, [facility]. Tissue Density: There are scattered areas of fibroglandular density. Findings: Analyzed By CAD. There is no suspicious group of microcalcifications or new suspicious mass in either breast. Overall Assessment: Negative, BI-RAD 1 Management: Screening Mammogram of both breasts in 1 year. . Patient should continue monthly self-breast exams. A clinical breast exam by your physician is recommended on an annual basis. This exam should not preclude additional follow-up of suspicious palpable abnormalities. Note on Malorie scores and lifetime risk: 1. A Malorie score greater than 3% is considered moderate risk. If this is the case, consider specialist referral to assess eligibility for a risk reducing agent. 2. If overall lifetime risk for the development of breast cancer is 20% or higher, the patient may qualify for future screening with alternating mammogram and breast MRI. [facility], , 01/17/2025 11:56 AM. Electronically signed and approved by: Miah Trujillo M.D. Radiologis
== END | disposition home or self-care (01) ==
LOC: RADMAMWWP 10:34
PROVIDERS: ATTEND Family Medicine
DX: Z12.31 Encounter for screening mammogram for malignant neoplasm of breast (principal); R92.323 Mammographic fibroglandular density, bilateral breasts; Z78.0 Asymptomatic menopausal state; Z80.3 Family history of malignant neoplasm of breast
CPT/HCPCS: 77063; 77067

== ENCOUNTER → 2025-03-13 | Outpatient (CLI) | payer MEDICARE ==
--- NOTE | 2025-03-13 17:36 | CA ---
Exercise Stress Test Report Name: Yarely George Exam Date: 03/13/2025 09:50 Exam Location: [place] Stress Ht (in): 60 Wt (lb): 230 BSA: 1.98 Ordering Phys: Vanesa Auguste MD Referring Phys: Vanesa Auguste MD Technologist: Mark Curry Age: 69 Gender: F : 1955 Procedure CPT: Indications: R07.9 CHEST PAIN ICD-10 Codes: Patient History: Medications: Meds past 24 hrs: Pretest Chest Pain: STRESS TEST Juan Manuel Protocol Exercise Duration (min:sec): 07:[address] Depressions (mm): Angina Score: Lopez Score: Resting HR (bpm): 82 Peak HR (bpm): 141 Resting BP (mmHg): 144 / 90 Peak BP (mmHg): 177 / 95 MPHR: 151 Target HR: 128 % MPHR: 93 METS: 8.5 Total Dose: Peak Dose: Atropine: Double Product: 19948 BP Response: Stress Termination: MAX EXERTION/TARGET HR Stress Symptoms: NO SYMPTOMS Stress Summary: ECG ANALYSIS Resting ECG: Stress ECG: CONCLUSIONS Baseline EKG revealed normal sinus rhythm without significant ST-T changes. Patient walked on samples protocol for 7 minutes and achieved maximal heart rate of 141 bpm which is more than 90% of predicted maximal. No angina no arrhythmia no EKG changes to indicate ischemia. This is a negative stress test with fair exercise capacity Dr. Ifeoma Winters MD (Electronically Signed) Final Date: 13 Mar 2025 17:35
== END | disposition home or self-care (01) ==
LOC: RADNMMAIN 09:20
PROVIDERS: ATTEND Family Medicine
DX: R07.9 Chest pain, unspecified (principal)
CPT/HCPCS: 93017